=== PATIENT | female | born 1940 | race Caucasian/White ===

== ENCOUNTER 2018-04-01 09:53 | Day surgery (SDC) | payer BC ==
[2018-03-31 10:57] VITALS: BMI 21.1
--- NOTE | 2018-03-31 11:36 | HP ---
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 She was placed on tamoxifen innitially but was taken off due to superficial thrombophlebitis. She had a reduction on left 01/2012 for symmetry. She had a TIA and as taken off tamoxifen 4.5 years ago. 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 She has a chronic inverted nipple and was treated by Dr fields for left breast redness and pain . He performed an I and D but she continues to have residual drainage. She is on cipro currently ad has left breast erythema and pus which has come to a head and opened up at home today. Wound culture was negative. History Source: Patient Limitations to Obtaining History: No Limitations - Past Medical History Cardiovascular: Yes: HTN Additional Past Medical History: superficial thrombophlebitis small TIA dry eyes - Past Surgical History Past Surgical History: Yes: Hysterectomy (TAHBSO fibroids 2000), Mastectomy ( right total mastectomy right implant snetenl ndoe bx off tamoxifen in past for thrombophlebitis and TIA. mastopexy left) - Advance Directives Advance Directives: Yes: Health Care Proxy - Smoking History Smoking history: Never smoked Have you smoked in the past 12 months: No - Alcohol/Substance Use Hx Alcohol Use: Yes (SOCIAL) Home Medications - Allergies Allergies/Adverse Reactions: Allergies Allergy/AdvReac Type Severity Reaction Status Date / Time No Known Allergies Allergy Verified 07/27/11 15:06 - Home Medications Home Medications: Ambulatory Orders Amlodipine Besylate [Norvasc -] 7.5 mg PO DAILY 03/31/18 Aspirin [Adult Aspirin Regimen] 81 mg PO DAILY 03/31/18 Atorvastatin Ca [Lipitor] 10 mg PO DAILY 03/31/18 Cholecalciferol (Vitamin D3) [Vitamin D] 2,000 unit PO DAILY 03/31/18 Ciprofloxacin HCl [Cipro] 500 mg PO BID 03/31/18 Irbesartan [Avapro] 300 mg PO DAILY 03/31/18 Metoprolol Succinate 50 mg PO DAILY 03/31/18 Ranitidine HCl [Zantac] 150 mg PO BID 03/31/18 Family Disease History - Family Disease History Family Disease History: CA: Father (prostate ca) Review of Systems - Review of Systems Breasts: reports: Other Physical Examination Constitutional: Yes: Well Nourished Breast(s): Yes: Other (right mastectomy no rcurrence over implant , left breast redness with abscess ready to drain which opened up at home purulent discharge) Problem List - Problems (1) Abscess of left breast Code(s): N61.1 - ABSCESS OF THE BREAST AND NIPPLE Assessment/Plan Left breast I and D
[2018-04-01] MEDS ORDERED: LIDOCAINE HCL 1%, 10 MG/ML (20ML VIAL) ONE (10:33)
[2018-04-01] MEDS ORDERED: MIDAZOLAM HCL 2 MG/2 ML SINGLE DOSE VIAL ONE (11:35)
[2018-04-01] MEDS ORDERED: PROPOFOL 20 ML ONE (11:35)
[2018-04-01] MEDS ORDERED: ONDANSETRON 4 MG/2 ML VIAL IVPUSH PRN (11:47)
[2018-04-01] MEDS ORDERED: KETOROLAC TROMETHAMINE 30 MG/1 ML VIAL IVPUSH PRN (11:47)
[2018-04-01] MEDS ORDERED: DEXAMETHASONE SOD PHOSPHATE 4 MG/1 ML VIAL ONE (11:57)
[2018-04-01] MEDS ORDERED: ONDANSETRON 4 MG/2 ML VIAL ONE (11:57)
[2018-04-01] MEDS ORDERED: KETOROLAC TROMETHAMINE 30 MG/1 ML VIAL ONE (11:57)
[2018-04-01] MEDS ORDERED: DEXTROSE 5%-0.45% SALINE 1,000 ML IV SCH (12:00)
[2018-04-01] MEDS ORDERED: LIDOCAINE HCL 1%, 10 MG/ML (50 mL VIAL) INF ONE (12:05)
[2018-04-01] MEDS ORDERED: BUPIVACAINE HCL 0.25% 125 MG/50 ML VIAL ONE (12:06)
[2018-04-01] MEDS ORDERED: BUPIVACAINE HCL/PF 0.25% (2.5MG/ML) 10 ML VIAL IJ ONE (12:20)
--- NOTE | 2018-04-01 12:52 | OP ---
DATE OF OPERATION: 04/01/2018 PREOPERATIVE DIAGNOSIS: Left breast abscess. POSTOPERATIVE DIAGNOSIS: Left breast abscess status post incision and drainage. PROCEDURE: Sharp incision and drainage of left breast retroareolar abscess. ANESTHESIA: Local with IV sedation. PRIMARY SURGEON: Yenifer Ryder MD DRAFTER CHIEF DESIGN: BERLIN Atkins COMPLICATIONS: None. Briefly, the patient is a 77-year-old postmenopausal white female with a history of right mastectomy for DCIS back in 2011, which was ER/[place] positive. She had a left breast reduction mastopexy later for symmetry and took Tamoxifen for 4-1/2 hours. She has had chronic left nipple inversion and did develop a small left breast periareolar abscess, which was incised and drained in the office in January 2018. This eventually healed in but quickly recurred in February and March 2018 and could not be treated by conservative outpatient management. Cultures just showed coagulase-negative staphylococcus and Lactobacillus. The patient now is brought to the operating room for incision and sharp debridement of the left breast retroareolar region. DESCRIPTION OF PROCEDURE: The patient was brought in to Ambulatory Surgery on April 01, 2018. In the holding area, site verification was made, and informed consent was obtained. She was brought into the operating room and laid on the OR table in a supine position. She did not receive any antibiotics, and she was already on oral antibiotics. The left breast was sterilely prepped and draped in the usual fashion. She was given IV sedation as well as propofol. Then 1% lidocaine was given around the left breast nipple areolar complex. A periareolar incision was made directly over the abscess at the medial aspect of the left breast periareolar border. Dissection was undertaken, and necrotic tissue was easily found. Cultures were taken. There was a lot of debris seen within the ducts, and the ducts were completely debrided underneath the left breast nipple areolar complex. Some tissue was sharply debrided and sent to Pathology as specimen. The wound was copiously irrigated after the wound was fully debrided, and there was good bleeding tissue. Hemostasis was achieved using electrocautery. The wound was then packed using 1/2-inch iodoform gauze. Sterile dressing was applied, and she was placed in a surgical bra postoperatively. The patient will be brought to the post anesthesia care unit and recovered and then discharged home the same day once discharge criteria are met. Estimated blood loss was minimal, and all sponge and needle counts were correct at the end of the case. The patient will follow up in the office tomorrow for the first dressing change, and we will arrange visiting nurse services at home for daily dressing changes afterwards. She will remain on p.o. Cipro. YENIFER RYDER M.D. [id number]
[2018-04-01 13:04] VITALS: TEMP 97.8
[2018-04-01 16:00] VITALS: BP 118/62; PULSE 66
--- NOTE | 2018-04-04 11:35 | PATH ---
Surgical Pathology Report Patient Name: MARY KATE CLARKE [facility]. Rec. #: [id number] /Age/Gender: 1940 (Age: 77) / F Account: [id number] Location: [facility] Taken: 04/01/2018 Received: 04/01/2018 Reported: 04/04/2018 Physicians: Amish Ryder M.D. Specimen(s) Received LEFT BREAST RETROAREOLAR DEBRIDEMENT Clinical History Left breast abscess h/o right breast cancer Final Diagnosis BREAST, LEFT RETROAREOLAR, DEBRIDEMENT: BENIGN BREAST TISSUE SHOWING MARKED ACUTE AND CHRONIC INFLAMMATION WITH GRANULATION TISSUE FORMATION, HISTIOCYTIC/GIANT CELL REACTION AND DENSE FIBROSIS. Electronically Signed Magy Galindo M.D. Gross Description Received in formalin, labeled "left breast retroareolar debridement" is a 2.4 x 1.8 x 0.4 cm portion of asencio and brown fibrous-appearing tissue. The specimen is inked black, serially sectioned and entirely submitted in three cassettes. ebram/04/02/2018
== END 2018-04-01 13:30 | disposition home or self-care (01) ==
LOC: FASU 09:53
PROVIDERS: ATTEND Surgery Surgical Oncology
PROC: 0J960ZX Drainage of Chest Subcutaneous Tissue and Fascia, Open Approach, Diagnostic (ICD-10-PCS; principal; 2018-04-01 11:30)
DX: N61.1 Abscess of the breast and nipple (principal); Z85.3 Personal history of malignant neoplasm of breast; Z90.11 Acquired absence of right breast and nipple
CPT/HCPCS: 87070; 87205; 88305-TC

== ENCOUNTER 2019-07-23 07:18 | Day surgery (SDC) | payer BC, OTHER ==
[2019-07-10 12:04] VITALS: BMI 19.6
[2019-07-23] MEDS ORDERED: PROPOFOL 20 ML ONE (09:27)
[2019-07-23] MEDS ORDERED: MIDAZOLAM HCL 2 MG/2 ML SINGLE DOSE VIAL ONE (09:27)
[2019-07-23] MEDS ORDERED: LIDOCAINE HCL/PF 2% SDV 5ML VIAL ONE (09:28)
[2019-07-23] MEDS ORDERED: PROMETHAZINE HCL 25 MG/1 ML VIAL IVPUSH PRN (09:34)
[2019-07-23] MEDS ORDERED: ONDANSETRON 4 MG/2 ML VIAL IVPUSH PRN ×2 (09:34→09:49)
[2019-07-23] MEDS ORDERED: oxyCODONE HCL 5 MG TABLET PO PRN (09:34)
[2019-07-23] MEDS ORDERED: LACTATED RINGERS SOLUTION 1,000 ML IV SCH (09:45)
[2019-07-23] MEDS ORDERED: KETOROLAC TROMETHAMINE 30 MG/1 ML VIAL IVPUSH PRN (09:49)
[2019-07-23] MEDS ORDERED: BUPIVACAINE HCL/PF 0.5% (5MG/ML) 10 ML VIAL ONE (09:59)
[2019-07-23] MEDS ORDERED: SODIUM CHLORIDE 0.9% P/F 10 ML VIAL IJ ONE (10:00)
[2019-07-23] MEDS ORDERED: DEXTROSE 5%-0.45% SALINE 1,000 ML IV SCH (10:00)
[2019-07-23] MEDS ORDERED: ceFAZolin SODIUM 1 GM VIAL ONE (10:00)
[2019-07-23] MEDS ORDERED: ONDANSETRON 4 MG/2 ML VIAL ONE (10:01)
[2019-07-23] MEDS ORDERED: DEXAMETHASONE SOD PHOSPHATE 4 MG/1 ML VIAL ONE (10:01)
[2019-07-23] MEDS ORDERED: KETOROLAC TROMETHAMINE 30 MG/1 ML VIAL ONE (10:03)
[2019-07-23] MEDS ORDERED: GLYCOPYRROLATE 0.2 MG/1 ML VIAL ONE (10:26)
[2019-07-23 11:55] VITALS: TEMP 97.5
--- NOTE | 2019-07-23 13:07 | OP ---
DATE OF OPERATION: 07/23/2019 PREOPERATIVE DIAGNOSIS: Perioareolar duct abscesses and mastitis. POSTOPERATIVE DIAGNOSIS: Perioareolar duct abscesses and mastitis. PROCEDURE: Left breast major duct excision. ANESTHESIA: General-laryngeal mask airway anesthesia. PRIMARY SURGEON: Yenifer Ryder MD KEY ATTENDANT: BERLIN Bashir COMPLICATIONS: There were no complications. INDICATION FOR PROCEDURE: Briefly, the patient is a 79-year-old, postmenopausal white female of [place]ken[place] descent who has a history of undergoing a right breast total mastectomy, sentinel lymph node biopsy for DCIS back in 2011. She had 3 negative nodes that time and had an ER/MD-positive DCIS and took tamoxifen for about 4 years. She has a history of a cutaneous B-cell lymphoma. She had a left breast reduction and mastopexy for symmetry in 2011. She has had multiple left breast periareolar abscesses and mastitis, since earlier in 2018, with multiple incision and drainages. These have been recurrent. Her last incision and drainage was on June 11, 2019. Her infections have now resolved. However, it was felt that she requires a major duct excision to try to prevent more recurrent infection. She was brought in for the procedure, today, on July 23, 2019, through Ambulatory Surgery. She was brought to the holding area. In the holding area, site verification was made and informed consent was obtained. DESCRIPTION OF PROCEDURE: She was brought into the operating room and laid on the OR table in a supine position. Venodynes were placed on the lower extremities. The left breast was sterilely prepped and draped in the usual fashion. She was given a gram of Ancef prior to incision and underwent general-laryngeal mask airway anesthesia. When she was properly anesthetized, timeout was performed. Major duct excision was performed through a medial left breast periareolar incision, removing some previous scar tissue. The skin of the nipple was completely lifted off the breast tissue and the terminal ducts were cut. A wedge of breast tissue directly underneath the left breast nipple-areolar complex was completely excised and there was a lot of scar tissue in this area from previous surgery and infections. The tissue was excised and oriented with a suture marking the terminal ducts and sent to Pathology in formalin. A separate lateral margin was taken of some dense scar tissue and sent separately as lateral margin. Hemostasis was achieved and the breast tissue was then reapproximated using 2-0 plain suture. Some of the breast tissue had to be undermined to allow for an appropriate closure to bring the tissue and the wound underneath the nipple-areolar complex. The nipple-areolar complex was then placed back down on this closure and the skin was closed using interrupted 3-0 deep dermal Vicryl suture and a running 4-0 subcuticular Biosyn suture. Mastisol and Steri-Strips were applied over the wound with a compressive dressing placed over this. She was placed in a surgical bra postoperatively. Estimated blood loss was minimal and sponge and needle counts were correct at the end of the case. The patient had the laryngeal mask airway tube removed and will be recovered in the postanesthesia care unit and will be discharged home the same day, once discharge criteria are met. She is to follow up in the office in 1 week for a formal wound pathology check. YENIFER RYDER M.D. [id number]
[2019-07-23 13:14] VITALS: BP 160/79; PULSE 52
--- NOTE | 2019-07-27 14:48 | PATH ---
Surgical Pathology Report Patient Name: MARY KATE CLARKE [facility]. Rec. #: [id number] /Age/Gender: 1940 (Age: 79) / F Account: [id number] Location: [facility] Taken: 07/23/2019 Received: 07/23/2019 Reported: 07/27/2019 Physicians: Amish Ryder M.D. Specimen(s) Received A: LEFT BREAST MAJOR DUCT EXCISION B: LEFT BREAST LATERAL EXCISION Clinical History History of cornelius-areolar duct infections Final Diagnosis A. LEFT BREAST, MAJOR DUCT EXCISION BENIGN BREAST TISSUE WITH DUCTAL DILATATION, USUAL DUCTAL HYPERPLASIA (UDH), STROMAL FIBROSIS, PERIDUCTAL CHRONIC INFLAMMATION, FOCAL MARKED HISTIOCYTIC/ GIANT CELL REACTION, AND MICROCALCIFICATIONS. ATTACHED PORTION OF SKIN SHOWING CHRONIC INFLAMMATION IN THE DERMIS. B. LEFT BREAST LATERAL EXCISION: BENIGN BREAST TISSUE WITH DUCTAL DILATATION, STROMAL FIBROSIS AND PERIDUCTAL CHRONIC INFLAMMATION. Electronically Signed Denise Sanchez M.D. Gross Description A. Received in formalin labeled "left major duct excision," is a 3.0 x 2.3 x 1.8 cm portion of fibroadipose tissue with a suture marking the terminal ducts, per the surgeon. There is no needle localization wire present. The specimen is inked blue and serially sectioned from terminal duct to deep. The specimen is entirely and sequentially submitted in 4 cassettes with the terminal ducts in cassette 1. Total formalin fixation time: Approximately 24 hours B. Received in formalin labeled "left breast lateral excision," is a 2.7 x 2.0 x 0.5 cm asencio-yellow, irregular, unoriented portion of fibroadipose tissue. One end is inked blue and the opposing end is inked green. The specimen is entirely and sequentially submitted in 3 cassettes. DL/07/24/2019 saudi/07/24/2019
== END 2019-07-23 13:15 | disposition home or self-care (01) ==
LOC: FASU 07:18
PROVIDERS: ATTEND Surgery Surgical Oncology
PROC: 0HBU0ZX Excision of Left Breast, Open Approach, Diagnostic (ICD-10-PCS; principal; 2019-07-23 10:09)
DX: N61.1 Abscess of the breast and nipple (principal); Z90.11 Acquired absence of right breast and nipple; Z85.3 Personal history of malignant neoplasm of breast
CPT/HCPCS: 88307-TC; 94760